=== PATIENT | female | born 1955 | race American Indian/Alaskan Native ===

== ENCOUNTER 2017-07-31 11:44 | Outpatient (CLI) | payer BC ==
--- NOTE | 2017-07-31 14:47 | Mammography Report ---
BILATERAL DIGITAL AUGMENTED DIAGNOSTIC MAMMOGRAM WITH CAD: 07/31/17 11:44:00 CLINICAL: History of a left asymmetry thought to be a probable benign intramammary lymph node. COMPARISON:09/08/16 and 08/23/16 mammograms. FINDINGS: Bilateral MLO and CC views with and without implant displacement demonstrate mostly fatty breasts with a few bilateral retroareolar fibroglandular densities. The previously identified low density circumscribed asymmetry on the CC view is not identified on this exam. Two additional oval circumscribed subcentimeter nodular densities are probably benign intraparenchymal lymph nodes and are unchanged compared to the last exam. No mass, architectural distortion or suspicious calcifications. Deformity of the left implant is consistent with focal herniation through the capsule and is unchanged compared to the last exam. IMPRESSION: No mammographic evidence of malignancy. BI-RADS CATEGORY: 2 -- Benign RECOMMENDATION: Routine mammographic screening in one year.
== END 2017-07-31 11:45 | disposition home or self-care (01) ==
LOC: SPVWC 11:44
PROVIDERS: ATTEND Family Medicine
DX: R92.8 Other abnormal and inconclusive findings on diagnostic imaging of breast (principal); Z92.89 Personal history of other medical treatment; Z98.82 Breast implant status
CPT/HCPCS: 77066; G0204

== ENCOUNTER 2018-12-05 08:59 | Emergency (ER) | payer OTHER, BC ==
[2018-12-05 10:05] VITALS: BP 125/86
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
--- NOTE | 2018-12-05 10:57 | XRay Report ---
RIGHT WRIST, 4 VIEWS: History: wrist pain, injury. Mild osteopenia is suspected. The carpal and adjacent articular bones have normal contours. No evidence for displaced fracture, dislocation or ligamentous injury. The surrounding soft tissues are unremarkable. IMPRESSION: Osteopenia. No acute bony injury is detected.
[2018-12-05] MEDS ORDERED: TORADOL IM ONE (11:02)
== END 2018-12-05 11:56 | disposition home or self-care (01) ==
LOC: ED 08:59
DX: S60.811A Abrasion of right wrist, initial encounter (principal); R07.89 Other chest pain; V89.2XXA Person injured in unspecified motor-vehicle accident, traffic, initial encounter; Y93.89 Activity, other specified; Y99.8 Other external cause status; Y92.410 Unspecified street and highway as the place of occurrence of the external cause
CPT/HCPCS: 29125; 71046; 73110; 93005; 93010; 96372; 99284; J1885

== ENCOUNTER 2019-08-20 11:19 | Outpatient (CLI) | payer OTHER ==
--- NOTE | 2019-08-20 12:29 | Mammography Report ---
BILATERAL DIGITAL DIAGNOSTIC MAMMOGRAM WITH CAD -- 08/20/2019 RIGHT LIMITED BREAST ULTRASOUND INDICATION: Right breast lump. TECHNIQUE: Digital bilateral mammographic imaging was performed without and with implant displacemen t. Limited ultrasound was performed. This examination was interpreted with the benefit of Computer- ded Detection (CAD) analysis. COMPARISON: 07/31/2017 FINDINGS: Breast Density: The breasts are almost entirely fatty. MAMMOGRAPHIC FINDINGS: There is no evidence of dominant mass, suspicious calcifications or architectu ral distortion in either breast. Bilateral subglandular implants are in place. A triangular shaped ma rker was placed on a palpable lump in the right axilla but is not identified on the mammogram. ULTRASOUND FINDINGS: Targeted ultrasound evaluation was performed of the area of interest. Previous ultrasound of the right axilla demonstrated a benign skin lesion correlating with the palpable lump. The skin is thickened and there is an oval heterogeneous hypoechoic slightly irregular central mass measuring 7 x 4 x 8 mm. According to the patient, it has gotten smaller with antibiotics. IMPRESSION: Negative mammogram. A benign 8 mm skin lesion of the right axilla which is probably the r emnant of an inflamed epidermal inclusion cyst. Follow up recommendation: Routine yearly BI-RADS Category 2: Benign. A "normal" or negative report should not discourage follow up or biopsy of a clinically significant f inding. A written summary of these findings will be mailed to the patient. The patient will be entered into a mammography reporting system which will generate a reminder letter for the patient's next appointmen t at the appropriate interval. According to the [employer], yearly mammograms are recommended starting at age 40 and continuing as long as a woman is in good health. Breast MRI is recommended for women with an candy roximately 20-25% or greater lifetime risk of breast cancer, including women with a strong family his tory of breast or ovarian cancer and women who have been treated for Hodgkin's disease. Signer Name: Levi Tolbert MD Signed: 08/20/2019 12:24 PM Workstation Name: [id number]
== END 2019-08-20 11:20 | disposition home or self-care (01) ==
LOC: SPVWC 11:19
PROVIDERS: ATTEND Internal Medicine
DX: R92.2 Inconclusive mammogram (principal); N63.10 Unspecified lump in the right breast, unspecified quadrant
CPT/HCPCS: 77066

== ENCOUNTER 2020-08-25 13:37 | Outpatient (CLI) | payer OTHER ==
--- NOTE | 2020-08-26 12:56 | Mammography Report ---
DIGITAL SCREENING MAMMOGRAM WITH CAD, 08/26/2020 INDICATION: Routine screening mammography. TECHNIQUE: Digital bilateral 2D mammography was obtained in the craniocaudal and mediolateral obliq ue projections. This examination was interpreted with the benefit of Computer-Aided Detection analysi s. COMPARISON: 08/20/2019, 07/31/2017, 09/08/2016, 08/23/2016 FINDINGS: Breast Density: There are scattered areas of fibroglandular density. There is no evidence of dominant mass, suspicious calcifications or architectural distortion in eithe r breast. Bilateral prepectoral silicone implants are again noted. Circumscribed nodular density in t he left breast is again noted and appears unchanged. IMPRESSION: Follow up recommendation: Routine yearly BI-RADS Category 2: Benign. A "normal" or negative report should not discourage follow up or biopsy of a clinically significant f inding. A written summary of these findings will be mailed to the patient. The patient will be entered into a mammography reporting system which will generate a reminder letter for the patient's next appointmen t at the appropriate interval. The [employer] recommends yearly mammograms starting at age 40 and continuing as l stephanie as a woman is in good health. Breast MRI is recommended for women with an approximate 20-25% or greater lifetime risk of breast cancer, including women with a strong family history of breast or ova andrew cancer or who have been treated for Hodgkin's disease. Signer Name: Amarilis Comer MD Signed: 08/26/2020 12:52 PM Workstation Name: [email or web address]
== END 2020-08-25 13:38 | disposition home or self-care (01) ==
LOC: SPVWC 13:37
PROVIDERS: ATTEND Internal Medicine
DX: Z12.31 Encounter for screening mammogram for malignant neoplasm of breast (principal); N64.89 Other specified disorders of breast
CPT/HCPCS: 77067

== ENCOUNTER 2020-10-05 11:04 | Outpatient (CLI) | payer OTHER ==
--- NOTE | 2020-10-05 12:19 | Mammography Report ---
LEFT DIGITAL DIAGNOSTIC MAMMOGRAM WITH CAD CONVENTIONAL, 10/05/2020 LEFT LIMITED BREAST ULTRASOUND CLINICAL INFORMATION / INDICATION: Left breast lump. TECHNIQUE: Digital left mammographic imaging was performed. Spot compression views were obtained. Joseph it ultrasound was performed. This examination was interpreted with the benefit of Computer-Aided De tection (CAD) analysis. COMPARISON: Bilateral mammography 08/23/2016 through 08/25/2020. FINDINGS: Breast Density: There are scattered areas of fibroglandular density. MAMMOGRAPHIC FINDINGS: There is an 8 mm rounded circumscribed nodule in the left lateral breast super ficially at the site of the palpable abnormality. This corresponds to the site of a benign lymph node seen in this area back to 2016. The lymph node measured approximately 6 mm previously. No other parkinson ge. ULTRASOUND FINDINGS: Targeted ultrasound evaluation was performed of the area of interest. There is a lymph node in the left lateral breast at the 3:00 position 7 cm from the nipple at the site of the palpable abnormality. This corresponds to the site of the mammographically detected nodule. The abno rmality measures approximately 7.6 x 5.4 x 7.6 mm. The lymph node has a slightly asymmetrically thick ened cortex. There is increased cortical blood flow on Doppler exam. No other abnormality is seen. IMPRESSION: The palpable abnormality corresponds to a mildly enlarged lymph node with asymmetric nell ical thickening and increased cortical blood flow. The findings are probably related to a reactive ly mph node. If biopsy is not performed, short-term sonographic follow-up in 3 months may be helpful in documenting decrease in size. Follow up recommendation: Ultrasound BI-RADS Category 3: Probably Benign. Followup in 3 months. A "normal" or negative report should not discourage follow up or biopsy of a clinically significant f inding. A written summary of these findings will be mailed to the patient. The patient will be entered into a mammography reporting system which will generate a reminder letter for the patient's next appointmen t at the appropriate interval. According to the [employer], yearly mammograms are recommended starting at age 40 and continuing as long as a woman is in good health. Breast MRI is recommended for women with an candy roximately 20-25% or greater lifetime risk of breast cancer, including women with a strong family his tory of breast or ovarian cancer and women who have been treated for Hodgkin's disease. Signer Name: Luis F Pride MD Signed: 10/05/2020 12:14 PM Workstation Name: [id number]
== END 2020-10-05 11:05 | disposition home or self-care (01) ==
LOC: SPVWC 11:04
PROVIDERS: ATTEND Internal Medicine
DX: N63.42 Unspecified lump in left breast, subareolar (principal)